=== PATIENT | male | born 1945 | race Caucasian/White ===

== ENCOUNTER 2018-04-22 12:34 | Observation (INO) | payer MEDICARE, BC ==
[2018-04-22] MEDS ORDERED: Sodium Chloride 0.9% 10 ML Syringe FLUSH PRN ×2 (12:58)
--- NOTE | 2018-04-22 13:04 | EDM.PDOC ---
ED HPI GENERAL MEDICAL PROBLEM - General Chief Complaint: Neurological Problem Stated Complaint: CAME WITH EMS Time Seen by Provider: 04/22/18 12:52 Source of Information: Reports: Patient, EMS, RN Notes Reviewed History Limitations: Reports: Altered Mental Status - History of Present Illness INITIAL COMMENTS - FREE TEXT/NARRATIVE: 72-year-old gentleman presents to the emergency department today via EMS services for altered mental status, he has a known history of hepatic encephalopathy does use lactulose unfortunately did not take his medications last night was found this morning in a confused state will answer single word questions will intermittently follow commands eyes open to voice. Majority of this H&P is taken from chart review and from EMS report - Related Data Allergies Allergy/AdvReac Type Severity Reaction Status Date / Time No Known Allergies Allergy Verified 04/22/18 14:49 Home Meds: Home Meds Amylase/Lipase/Protease [Kelsy DR 24,000 Unit] 3 cap PO TID 04/22/18 [History] Aspirin 1 tab PO DAILY 04/22/18 [History] Digoxin 1 tab PO DAILY 04/22/18 [History] Escitalopram Oxalate 5 mg PO DAILY 04/22/18 [History] Furosemide 1.5 tab PO DAILY 04/22/18 [History] Lactulose [Chronulac] 30 ml PO DAILY 04/22/18 [History] Nadolol [Naldol] 1 tab PO BID 04/22/18 [History] Pantoprazole [ProTONIX] 1 tab PO DAILY 04/22/18 [History] Potassium Chloride 1 tab PO TID 04/22/18 [History] Rivastigmine Tartrate [Rivastigmine] 1 tab PO BID 04/22/18 [History] Spironolactone [Aldactone] 1 tab PO BEDTIME 04/22/18 [History] Tamsulosin HCl 1 tab PO BEDTIME 04/22/18 [History] Zinc Sulfate 1 tab PO BID 04/22/18 [History] atorvaSTATin [Lipitor] 1 tab PO DAILY 04/22/18 [History] Past Medical History Gastrointestinal History: Reports: Cirrhosis, Other (See Below) (Hepatic encephalopathy) ED ROS GENERAL - Review of Systems Review Of Systems: Unable To Obtain ED EXAM, NEURO - Physical Exam Exam: See Below Exam Limited By: Altered Mental Status General Appearance: Lethargic, Other (GCS of 12) Eye Exam: Bilateral Eye: Normal Inspection Ears: Normal External Exam, Normal Canal, Hearing Grossly Normal, Normal TMs Nose: Normal Inspection, Normal Mucosa, No Blood Throat/Mouth: Other (Patient refused, deferred) Head Exam: Atraumatic, Normocephalic Neck: Normal Inspection, Supple, Non-Tender, Full Range of Motion Respiratory/Chest: No Respiratory Distress, Lungs Clear, Normal Breath Sounds, No Accessory Muscle Use Cardiovascular: Normal Peripheral Pulses, Regular Rate, Rhythm, Systolic Murmur GI/Abdominal: Soft, Non-Tender Neurological: Other (GCS of 12) Extremities: Non-Tender, Pedal Edema Skin Exam: Warm, Dry Course - Vital Signs Last Recorded V/S: Last Vital Signs Temp 98.7 F 04/22/18 13:23 Pulse 62 04/22/18 14:03 Resp 15 04/22/18 14:03 BP 129/74 04/22/18 14:03 Pulse Ox 98 04/22/18 14:03 - Orders/Labs/Meds Orders: Active Orders 24 hr Category Date Time Status Patient Status Manage Transfer [TRANSFER] Routine ADT 04/22/18 15:29 Active EKG Documentation Completion [RC] ASDIRECTED Care 04/22/18 12:59 Active Peripheral IV Care [RC] . DIRECTED Care 04/22/18 12:59 Active UA W/MICROSCOPIC [URIN] Stat Lab 04/22/18 14:02 Ordered Lactated Ringers [Ringers, Lactated] 1,000 ml Med 04/22/18 14:56 Active IV BOLUS Sodium Chloride 0.9% [Saline Flush] Med 04/22/18 12:58 Active 10 ml FLUSH ASDIRECTED PRN Sodium Chloride 0.9% [Saline Flush] Med 04/22/18 12:58 Active 10 ml FLUSH ASDIRECTED PRN Peripheral IV Insertion Adult [OM.PC] Urgent Oth 04/22/18 12:58 Ordered Resuscitation Status Routine Resus Stat 04/22/18 15:31 Ordered EKG 12 Lead [EK] Urgent Ther 04/22/18 12:58 Ordered Medication Orders Lactated Ringer's (Ringers, Lactated) 1,000 mls @ 999 mls/hr IV BOLUS ONE Stop: 04/22/18 15:56 Sodium Chloride (Saline Flush) 10 ml FLUSH ASDIRECTED PRN PRN Reason: Keep Vein Open Sodium Chloride (Saline Flush) 10 ml FLUSH ASDIRECTED PRN PRN Reason: Keep Vein Open Labs: Laboratory Tests 04/22/18 04/22/18 04/22/18 Range/Units 13:24 13:24 13:24 WBC 3.8 L (4.5-11.0) K/uL RBC 3.64 L (4.30-5.90) M/uL Hgb 11.6 L (12.0-15.0) g/dL Hct 33.6 L (40.0-54.0) % MCV 92 (80-98) fL MCH 32 H (27-31) pg MCHC 35 (32-36) % Plt Count 51 L (150-400) K/uL Neut % (Auto) 48 (36-66) % Lymph % (Auto) 36 (24-44) % Mineral % (Auto) 13 H (2-6) % Eos % (Auto) 3 (2-4) % Baso % (Auto) 0 (0-1) % PT 14.3 H (9.5-12.0) sec INR 1.32 H (0.80-1.20) APTT 34.1 (27.0-36.0) sec Sodium 141 (140-148) mmol/L Potassium 3.8 (3.6-5.2) mmol/L Chloride 109 H (100-108) mmol/L Carbon Dioxide 23 (21-32) mmol/L Anion Gap 12.8 (5.0-14.0) mmol/L BUN 13 (7-18) mg/dL Creatinine 0.9 (0.8-1.3) mg/dL Est Cr Clr Drug Dosing 81.34 mL/min Estimated GFR (MDRD) > 60 (>60) Glucose 115 H (74-106) mg/dL Lactic Acid (0.4-2.0) mmol/L Calcium 8.1 L (8.5-10.1) mg/dL Total Bilirubin 2.2 H (0.2-1.0) mg/dL AST 48 H (15-37) U/L ALT 40 (12-78) U/L Alkaline Phosphatase 181 H (46-116) U/L Ammonia (11-32) mmol/L Troponin I < 0.017 (0.000-0.056) ng/mL Total Protein 5.7 L (6.4-8.2) g/dL Albumin 2.5 L (3.4-5.0) g/dL Globulin 3.2 (2.3-3.5) g/dL Albumin/Globulin Ratio 0.8 L (1.2-2.2) Urine Color Urine Appearance Urine pH (4.5-8.0) Ur Specific [place] (1.008-1.030) Urine Protein (NEGATIVE) mg/dL Urine Glucose (UA) (NEGATIVE) mg/dL Urine Ketones (NEGATIVE) mg/dL Urine Occult Blood (NEGATIVE) Urine Nitrite (NEGAITVE) Urine Bilirubin (NEGATIVE) Urine Urobilinogen (NORMAL) mg/dL Ur Leukocyte Esterase (NEGATIVE) Urine RBC (0-5) Urine WBC (0-5) Ur Epithelial Cells Amorphous Sediment Urine Bacteria Urine Mucus Digoxin (0.90-2.00) ng/mL Salicylates (2.0-20.0) mg/dL Urine Opiates Screen (NEGATIVE) Ur Oxycodone Screen (NEGATIVE) Urine Methadone Screen (NEGATIVE) Ur Propoxyphene Screen (NEGATIVE) Acetaminophen 0.1 L (10.0-30.0) ug/mL Ur Barbiturates Screen (NEGATIVE) Ur Tricyclics Screen (NEGATIVE) Ur Phencyclidine Scrn (NEGATIVE) Ur Amphetamine Screen (NEGATIVE) U Methamphetamines Scrn (NEGATIVE) Urine MDMA Screen (NEGATIVE) U Benzodiazepines Scrn (NEGATIVE) U Cocaine Metab Screen (NEGATIVE) U Marijuana (THC) Screen (NEGATIVE) Ethyl Alcohol mg/dL 04/22/18 04/22/18 04/22/18 Range/Units 13:24 13:24 13:24 WBC (4.5-11.0) K/uL RBC (4.30-5.90) M/uL Hgb (12.0-15.0) g/dL Hct (40.0-54.0) % MCV (80-98) fL MCH (27-31) pg MCHC (32-36) % Plt Count (150-400) K/uL Neut % (Auto) (36-66) % Lymph % (Auto) (24-44) % Mineral % (Auto) (2-6) % Eos % (Auto) (2-4) % Baso % (Auto) (0-1) % PT (9.5-12.0) sec INR (0.80-1.20) APTT (27.0-36.0) sec Sodium (140-148) mmol/L Potassium (3.6-5.2) mmol/L Chloride (100-108) mmol/L Carbon Dioxide (21-32) mmol/L Anion Gap (5.0-14.0) mmol/L BUN (7-18) mg/dL Creatinine (0.8-1.3) mg/dL Est Cr Clr Drug Dosing mL/min Estimated GFR (MDRD) (>60) Glucose (74-106) mg/dL Lactic Acid 1.5 (0.4-2.0) mmol/L Calcium (8.5-10.1) mg/dL Total Bilirubin (0.2-1.0) mg/dL AST (15-37) U/L ALT (12-78) U/L Alkaline Phosphatase (46-116) U/L Ammonia 57 H (11-32) mmol/L Troponin I (0.000-0.056) ng/mL Total Protein (6.4-8.2) g/dL Albumin (3.4-5.0) g/dL Globulin (2.3-3.5) g/dL Albumin/Globulin Ratio (1.2-2.2) Urine Color Urine Appearance Urine pH (4.5-8.0) Ur Specific [place] (1.008-1.030) Urine Protein (NEGATIVE) mg/dL Urine Glucose (UA) (NEGATIVE) mg/dL Urine Ketones (NEGATIVE) mg/dL Urine Occult Blood (NEGATIVE) Urine Nitrite (NEGAITVE) Urine Bilirubin (NEGATIVE) Urine Urobilinogen (NORMAL) mg/dL Ur Leukocyte Esterase (NEGATIVE) Urine RBC (0-5) Urine WBC (0-5) Ur Epithelial Cells Amorphous Sediment Urine Bacteria Urine Mucus Digoxin (0.90-2.00) ng/mL Salicylates 0.0 L (2.0-20.0) mg/dL Urine Opiates Screen (NEGATIVE) Ur Oxycodone Screen (NEGATIVE) Urine Methadone Screen (NEGATIVE) Ur Propoxyphene Screen (NEGATIVE) Acetaminophen (10.0-30.0) ug/mL Ur Barbiturates Screen (NEGATIVE) Ur Tricyclics Screen (NEGATIVE) Ur Phencyclidine Scrn (NEGATIVE) Ur Amphetamine Screen (NEGATIVE) U Methamphetamines Scrn (NEGATIVE) Urine MDMA Screen (NEGATIVE) U Benzodiazepines Scrn (NEGATIVE) U Cocaine Metab Screen (NEGATIVE) U Marijuana (THC) Screen (NEGATIVE) Ethyl Alcohol mg/dL 04/22/18 04/22/18 04/22/18 Range/Units 13:24 14:02 14:23 WBC (4.5-11.0) K/uL RBC (4.30-5.90) M/uL Hgb (12.0-15.0) g/dL Hct (40.0-54.0) % MCV (80-98) fL MCH (27-31) pg MCHC (32-36) % Plt Count (150-400) K/uL Neut % (Auto) (36-66) % Lymph % (Auto) (24-44) % Mineral % (Auto) (2-6) % Eos % (Auto) (2-4) % Baso % (Auto) (0-1) % PT (9.5-12.0) sec INR (0.80-1.20) APTT (27.0-36.0) sec Sodium (140-148) mmol/L Potassium (3.6-5.2) mmol/L Chloride (100-108) mmol/L Carbon Dioxide (21-32) mmol/L Anion Gap (5.0-14.0) mmol/L BUN (7-18) mg/dL Creatinine (0.8-1.3) mg/dL Est Cr Clr Drug Dosing mL/min Estimated GFR (MDRD) (>60) Glucose (74-106) mg/dL Lactic Acid (0.4-2.0) mmol/L Calcium (8.5-10.1) mg/dL Total Bilirubin (0.2-1.0) mg/dL AST (15-37) U/L ALT (12-78) U/L Alkaline Phosphatase (46-116) U/L Ammonia (11-32) mmol/L Troponin I (0.000-0.056) ng/mL Total Protein (6.4-8.2) g/dL Albumin (3.4-5.0) g/dL Globulin (2.3-3.5) g/dL Albumin/Globulin Ratio (1.2-2.2) Urine Color Yellow Urine Appearance Clear Urine pH 7.0 (4.5-8.0) Ur Specific [place] 1.010 (1.008-1.030) Urine Protein Negative (NEGATIVE) mg/dL Urine Glucose (UA) Normal (NEGATIVE) mg/dL Urine Ketones Negative (NEGATIVE) mg/dL Urine Occult Blood Large (NEGATIVE) Urine Nitrite Negative (NEGAITVE) Urine Bilirubin Negative (NEGATIVE) Urine Urobilinogen 1 (NORMAL) mg/dL Ur Leukocyte Esterase Negative (NEGATIVE) Urine RBC 5-10 H (0-5) Urine WBC 0-5 (0-5) Ur Epithelial Cells Few Amorphous Sediment Not seen Urine Bacteria Rare Urine Mucus Rare Digoxin (0.90-2.00) ng/mL Salicylates (2.0-20.0) mg/dL Urine Opiates Screen Negative (NEGATIVE) Ur Oxycodone Screen Negative (NEGATIVE) Urine Methadone Screen Negative (NEGATIVE) Ur Propoxyphene Screen Negative (NEGATIVE) Acetaminophen (10.0-30.0) ug/mL Ur Barbiturates Screen Negative (NEGATIVE) Ur Tricyclics Screen Negative (NEGATIVE) Ur Phencyclidine Scrn Negative (NEGATIVE) Ur Amphetamine Screen Negative (NEGATIVE) U Methamphetamines Scrn Negative (NEGATIVE) Urine MDMA Screen Negative (NEGATIVE) U Benzodiazepines Scrn Negative (NEGATIVE) U Cocaine Metab Screen Negative (NEGATIVE) U Marijuana (THC) Screen Negative (NEGATIVE) Ethyl Alcohol < 3 mg/dL 04/22/18 Range/Units 14:57 WBC (4.5-11.0) K/uL RBC (4.30-5.90) M/uL Hgb (12.0-15.0) g/dL Hct (40.0-54.0) % MCV (80-98) fL MCH (27-31) pg MCHC (32-36) % Plt Count (150-400) K/uL Neut % (Auto) (36-66) % Lymph % (Auto) (24-44) % Mineral % (Auto) (2-6) % Eos % (Auto) (2-4) % Baso % (Auto) (0-1) % PT (9.5-12.0) sec INR (0.80-1.20) APTT (27.0-36.0) sec Sodium (140-148) mmol/L Potassium (3.6-5.2) mmol/L Chloride (100-108) mmol/L Carbon Dioxide (21-32) mmol/L Anion Gap (5.0-14.0) mmol/L BUN (7-18) mg/dL Creatinine (0.8-1.3) mg/dL Est Cr Clr Drug Dosing mL/min Estimated GFR (MDRD) (>60) Glucose (74-106) mg/dL Lactic Acid (0.4-2.0) mmol/L Calcium (8.5-10.1) mg/dL Total Bilirubin (0.2-1.0) mg/dL AST (15-37) U/L ALT (12-78) U/L Alkaline Phosphatase (46-116) U/L Ammonia (11-32) mmol/L Troponin I (0.000-0.056) ng/mL Total Protein (6.4-8.2) g/dL Albumin (3.4-5.0) g/dL Globulin (2.3-3.5) g/dL Albumin/Globulin Ratio (1.2-2.2) Urine Color Urine Appearance Urine pH (4.5-8.0) Ur Specific [place] (1.008-1.030) Urine Protein (NEGATIVE) mg/dL Urine Glucose (UA) (NEGATIVE) mg/dL Urine Ketones (NEGATIVE) mg/dL Urine Occult Blood (NEGATIVE) Urine Nitrite (NEGAITVE) Urine Bilirubin (NEGATIVE) Urine Urobilinogen (NORMAL) mg/dL Ur Leukocyte Esterase (NEGATIVE) Urine RBC (0-5) Urine WBC (0-5) Ur Epithelial Cells Amorphous Sediment Urine Bacteria Urine Mucus Digoxin 0.30 L (0.90-2.00) ng/mL Salicylates (2.0-20.0) mg/dL Urine Opiates Screen (NEGATIVE) Ur Oxycodone Screen (NEGATIVE) Urine Methadone Screen (NEGATIVE) Ur Propoxyphene Screen (NEGATIVE) Acetaminophen (10.0-30.0) ug/mL Ur Barbiturates Screen (NEGATIVE) Ur Tricyclics Screen (NEGATIVE) Ur Phencyclidine Scrn (NEGATIVE) Ur Amphetamine Screen (NEGATIVE) U Methamphetamines Scrn (NEGATIVE) Urine MDMA Screen (NEGATIVE) U Benzodiazepines Scrn (NEGATIVE) U Cocaine Metab Screen (NEGATIVE) U Marijuana (THC) Screen (NEGATIVE) Ethyl Alcohol mg/dL Meds: Medications Generic Name Dose Route Start Last Admin Trade Name Groverq PRN Reason Stop Dose Admin Lactated Ringer's 1,000 mls @ 999 mls/hr 04/22/18 14:56 Ringers, Lactated IV 04/22/18 15:56 BOLUS ONE Sodium Chloride 10 ml 04/22/18 12:58 Saline Flush FLUSH ASDIRECTED PRN Keep Vein Open Sodium Chloride 10 ml 04/22/18 12:58 Saline Flush FLUSH ASDIRECTED PRN Keep Vein Open Discontinued Medications Generic Name Dose Route Start Last Admin Trade Name Ej PRN Reason Stop Dose Admin Lactulose 200 gm/ Sodium 0 gm 04/22/18 15:00 Chloride 700 ml RECTAL 04/22/18 15:01 ONETIME ONE Lactulose 10 gm 04/22/18 14:08 04/22/18 14:25 Chronulac PO 04/22/18 14:09 10 gm ONETIME ONE Administration Departure - Departure Time of Disposition: 15:52 Disposition: Admitted As Inpatient 68 Condition: Fair Clinical Impression: Hepatic encephalopathy - Discharge Information Referrals: PCP,None [Primary Care Provider] - Forms: ED Department Discharge - My Orders Last 24 Hours: My Active Orders 04/22/18 12:58 Sodium Chloride 0.9% [Saline Flush] 10 ml FLUSH ASDIRECTED PRN Sodium Chloride 0.9% [Saline Flush] 10 ml FLUSH ASDIRECTED PRN Peripheral IV Insertion Adult [OM.PC] Urgent EKG 12 Lead [EK] Urgent 04/22/18 12:59 EKG Documentation Completion [RC] ASDIRECTED Peripheral IV Care [RC] . DIRECTED 04/22/18 14:02 UA W/MICROSCOPIC [URIN] Stat 04/22/18 14:56 Lactated Ringers [Ringers, Lactated] 1,000 ml IV BOLUS - Assessment/Plan Last 24 Hours: My Active Orders 04/22/18 12:58 Sodium Chloride 0.9% [Saline Flush] 10 ml FLUSH ASDIRECTED PRN Sodium Chloride 0.9% [Saline Flush] 10 ml FLUSH ASDIRECTED PRN Peripheral IV Insertion Adult [OM.PC] Urgent EKG 12 Lead [EK] Urgent 04/22/18 12:59 EKG Documentation Completion [RC] ASDIRECTED Peripheral IV Care [RC] . DIRECTED 04/22/18 14:02 UA W/MICROSCOPIC [URIN] Stat 04/22/18 14:56 Lactated Ringers [Ringers, Lactated] 1,000 ml IV BOLUS Plan: Assessment Acuity = acute Site and laterality = hepatic encephalopathy complicated patient with known history of liver cirrhosis Etiology = probably related to lactulose compliance Manifestations = altered mental status Location of injury = Home Lab values = cbc unremarkable, INR 1.32 on no anticoagulants, total bilirubin 2.2 consistent with hyperbilirubinemia ammonia level elevated at 57, digoxin subtherapeutic at 0.3, urinalysis unremarkable, CT scan of the head shows no acute process, tox screen was negative Plan Called discussed case with hospitalist manager oncology he agreed to come and evaluate the patient emergency department for admission This note was dictated using [employer] voice recognition software please call with any questions on syntax or grammar.
--- NOTE | 2018-04-22 13:38 | CT ---
Head wo Cont CLINICAL HISTORY: Unresponsive COMPARISON: None TECHNIQUE: Transverse scans were obtained from the base of the skull through the vertex without IV co ntrast on a multislice, multidetector CT scanner. Auto dosage reduction and iterative reconstruction techniques employed. FINDINGS: No focal abnormal parenchymal density is identified. There is no mass effect, hemorrhage, o r extraaxial collection. The basal cisterns and sulci over the convexities are mildly prominent. The ventricles are normal for age. IMPRESSION: Mild age-related atrophy No focal lesions mass effect or hemorrhage
[2018-04-22 13:51] LABS: ACETAMINOPHEN 0.1 ug/mL (10.0-30.0)
[2018-04-22] MEDS ORDERED: Lactulose Soln 10 GM/15 ML 15 ML UD Cup ONE (13:58)
[2018-04-22] MEDS ORDERED: Lactulose Soln 10 GM/15 ML 15 ML UD Cup PO ONE (14:08)
[2018-04-22] MEDS ORDERED: Lactated Ringers 1,000 ML IV ONE (14:56)
--- NOTE | 2018-04-22 15:41 | PCM.HP ---
H&P History of Present Illness - General Date of Service: 04/22/18 Admit Problem/Dx: Admission Diagnosis/Problem Admission Diagnosis/Problem Hepatic encephalopathy Source of Information: Patient, Family, Provider History Limitations: Reports: Altered Mental Status (some confusion and memory issues with HE) - History of Present Illness Initial Comments - Free Text/Narative: Elliot presents to the emergency room today with weakness, lethargy and confusion. Some of the history is gathered from his because of his recent difficulties with confusion and lethargy. His reports that he seemed a little bit off over the last day or 2 but in general was doing okay. Last night he seemed a little bit sleepier than usual but this morning was very difficult to get out of bed. He was confused and did not want to take his medications. He was very weak and required a fair amount of assistance to get around. She does note that he did not take his lactulose for approximately 10 days prior to yesterday when he did take a dose in the morning. They have not noticed any fevers. He does not feel short of breath. He is not having abdominal pain or nausea. He has not been around anybody sick. Workup in the emergency room revealed an ammonia level of 57. Bilirubin is mildly elevated and INR is mildly elevated consistent with chronic liver disease. He remains weak and confused and will be admitted for observation and additional doses of lactulose. - Related Data Allergies/Adverse Reactions: Allergies Allergy/AdvReac Type Severity Reaction Status Date / Time No Known Allergies Allergy Verified 04/22/18 14:49 Home Medications: Home Meds Amylase/Lipase/Protease [Kelsy GARCIA 24,000 Unit] 3 cap PO TID 04/22/18 [History] Aspirin 1 tab PO DAILY 04/22/18 [History] Digoxin 1 tab PO DAILY 04/22/18 [History] Escitalopram Oxalate 5 mg PO DAILY 04/22/18 [History] Furosemide 1.5 tab PO DAILY 04/22/18 [History] Lactulose [Chronulac] 30 ml PO DAILY 04/22/18 [History] Nadolol [Naldol] 1 tab PO BID 04/22/18 [History] Pantoprazole [ProTONIX] 1 tab PO DAILY 04/22/18 [History] Potassium Chloride 1 tab PO TID 04/22/18 [History] Rivastigmine Tartrate [Rivastigmine] 1 tab PO BID 04/22/18 [History] Spironolactone [Aldactone] 1 tab PO BEDTIME 04/22/18 [History] Tamsulosin HCl 1 tab PO BEDTIME 04/22/18 [History] Zinc Sulfate 1 tab PO BID 04/22/18 [History] atorvaSTATin [Lipitor] 1 tab PO DAILY 04/22/18 [History] Past Medical History Cardiovascular History: Reports: Afib Gastrointestinal History: Reports: Cirrhosis, Other (See Below) (Hepatic encephalopathy) Social & Family History - Family History GI: Denies: Cirrhosis - Tobacco Use Smoking Status *Q: Unknown Ever Smoked - Alcohol Use Alcohol Use History: Yes Alcohol Use in Last Twelve Months: No - Recreational Drug Use Recreational Drug Use: No H&P Review of Systems - Review of Systems: Review Of Systems: See Below Free Text/Narrative: A complete 12 point review of systems was obtained. Pertinent positives and negatives are noted in the history of present illness. All other systems were reviewed and were negative except as noted. Exam - Exam Exam: See Below - Vital Signs Vital Signs: Last Vital Signs Temp 37.1 C 04/22/18 13:23 Pulse 62 04/22/18 14:03 Resp 15 04/22/18 14:03 BP 129/74 04/22/18 14:03 Pulse Ox 98 04/22/18 14:03 Weight: 83.915 kg - Exam Quality Assessment: No: Supplemental Oxygen General: Alert, Cooperative, Lethargic. No: Oriented, Mild Distress HEENT: Conjunctiva Clear, Scleral Icterus. No: Mucosa Moist & [place] (dry) Neck: Supple, Trachea Midline. No: Lymphadenopathy Lungs: Clear to Auscultation, Normal Respiratory Effort Cardiovascular: Regular Rate, Regular Rhythm, Systolic Murmur GI/Abdominal Exam: Normal Bowel Sounds, Soft, Non-Tender, No Distention Extremities: Pedal Edema. No: Increased Warmth Peripheral Pulses: 2+: Dorsalis Pedis (L), Dorsalis Pedis (R) Skin: Warm, Dry Neuro Extensive - Mental Status: Alert, Slow Response to Commands. No: Oriented x3 Neuro Extensive - Motor, Sensory, Reflexes: CN II-XII Intact. No: Dysarthria, Abnormal Motor, Tremor Psychiatric: Alert, Normal Affect - Patient Data Lab Results Last 24 hrs: Laboratory Results - last 24 hr 07/04/22/18 04/22/18 Range/Units 13:24 13:24 13:24 WBC 3.8 L (4.5-11.0) K/uL RBC 3.64 L (4.30-5.90) M/uL Hgb 11.6 L (12.0-15.0) g/dL Hct 33.6 L (40.0-54.0) % MCV 92 (80-98) fL MCH 32 H (27-31) pg MCHC 35 (32-36) % Plt Count 51 L (150-400) K/uL Neut % (Auto) 48 (36-66) % Lymph % (Auto) 36 (24-44) % [place] % (Auto) 13 H (2-6) % Eos % (Auto) 3 (2-4) % Baso % (Auto) 0 (0-1) % PT 14.3 H (9.5-12.0) sec INR 1.32 H (0.80-1.20) APTT 34.1 (27.0-36.0) sec Sodium 141 (140-148) mmol/L Potassium 3.8 (3.6-5.2) mmol/L Chloride 109 H (100-108) mmol/L Carbon Dioxide 23 (21-32) mmol/L Anion Gap 12.8 (5.0-14.0) mmol/L BUN 13 (7-18) mg/dL Creatinine 0.9 (0.8-1.3) mg/dL Est Cr Clr Drug Dosing 81.34 mL/min Estimated GFR (MDRD) > 60 (>60) Glucose 115 H (74-106) mg/dL Lactic Acid (0.4-2.0) mmol/L Calcium 8.1 L (8.5-10.1) mg/dL Total Bilirubin 2.2 H (0.2-1.0) mg/dL AST 48 H (15-37) U/L ALT 40 (12-78) U/L Alkaline Phosphatase 181 H (46-116) U/L Ammonia (11-32) mmol/L Troponin I < 0.017 (0.000-0.056) ng/mL Total Protein 5.7 L (6.4-8.2) g/dL Albumin 2.5 L (3.4-5.0) g/dL Globulin 3.2 (2.3-3.5) g/dL Albumin/Globulin Ratio 0.8 L (1.2-2.2) Urine Color Urine Appearance Urine pH (4.5-8.0) Ur Specific [place] (1.008-1.030) Urine Protein (NEGATIVE) mg/dL Urine Glucose (UA) (NEGATIVE) mg/dL Urine Ketones (NEGATIVE) mg/dL Urine Occult Blood (NEGATIVE) Urine Nitrite (NEGAITVE) Urine Bilirubin (NEGATIVE) Urine Urobilinogen (NORMAL) mg/dL Ur Leukocyte Esterase (NEGATIVE) Urine RBC (0-5) Urine WBC (0-5) Ur Epithelial Cells Amorphous Sediment Urine Bacteria Urine Mucus Digoxin (0.90-2.00) ng/mL Salicylates (2.0-20.0) mg/dL Urine Opiates Screen (NEGATIVE) Ur Oxycodone Screen (NEGATIVE) Urine Methadone Screen (NEGATIVE) Ur Propoxyphene Screen (NEGATIVE) Acetaminophen 0.1 L (10.0-30.0) ug/mL Ur Barbiturates Screen (NEGATIVE) Ur Tricyclics Screen (NEGATIVE) Ur Phencyclidine Scrn (NEGATIVE) Ur Amphetamine Screen (NEGATIVE) U Methamphetamines Scrn (NEGATIVE) Urine MDMA Screen (NEGATIVE) U Benzodiazepines Scrn (NEGATIVE) U Cocaine Metab Screen (NEGATIVE) U Marijuana (THC) Screen (NEGATIVE) Ethyl Alcohol mg/dL 04/22/18 04/22/18 04/22/18 Range/Units 13:24 13:24 13:24 WBC (4.5-11.0) K/uL RBC (4.30-5.90) M/uL Hgb (12.0-15.0) g/dL Hct (40.0-54.0) % MCV (80-98) fL MCH (27-31) pg MCHC (32-36) % Plt Count (150-400) K/uL Neut % (Auto) (36-66) % Lymph % (Auto) (24-44) % [place] % (Auto) (2-6) % Eos % (Auto) (2-4) % Baso % (Auto) (0-1) % PT (9.5-12.0) sec INR (0.80-1.20) APTT (27.0-36.0) sec Sodium (140-148) mmol/L Potassium (3.6-5.2) mmol/L Chloride (100-108) mmol/L Carbon Dioxide (21-32) mmol/L Anion Gap (5.0-14.0) mmol/L BUN (7-18) mg/dL Creatinine (0.8-1.3) mg/dL Est Cr Clr Drug Dosing mL/min Estimated GFR (MDRD) (>60) Glucose (74-106) mg/dL Lactic Acid 1.5 (0.4-2.0) mmol/L Calcium (8.5-10.1) mg/dL Total Bilirubin (0.2-1.0) mg/dL AST (15-37) U/L ALT (12-78) U/L Alkaline Phosphatase (46-116) U/L Ammonia 57 H (11-32) mmol/L Troponin I (0.000-0.056) ng/mL Total Protein (6.4-8.2) g/dL Albumin (3.4-5.0) g/dL Globulin (2.3-3.5) g/dL Albumin/Globulin Ratio (1.2-2.2) Urine Color Urine Appearance Urine pH (4.5-8.0) Ur Specific [place] (1.008-1.030) Urine Protein (NEGATIVE) mg/dL Urine Glucose (UA) (NEGATIVE) mg/dL Urine Ketones (NEGATIVE) mg/dL Urine Occult Blood (NEGATIVE) Urine Nitrite (NEGAITVE) Urine Bilirubin (NEGATIVE) Urine Urobilinogen (NORMAL) mg/dL Ur Leukocyte Esterase (NEGATIVE) Urine RBC (0-5) Urine WBC (0-5) Ur Epithelial Cells Amorphous Sediment Urine Bacteria Urine Mucus Digoxin (0.90-2.00) ng/mL Salicylates 0.0 L (2.0-20.0) mg/dL Urine Opiates Screen (NEGATIVE) Ur Oxycodone Screen (NEGATIVE) Urine Methadone Screen (NEGATIVE) Ur Propoxyphene Screen (NEGATIVE) Acetaminophen (10.0-30.0) ug/mL Ur Barbiturates Screen (NEGATIVE) Ur Tricyclics Screen (NEGATIVE) Ur Phencyclidine Scrn (NEGATIVE) Ur Amphetamine Screen (NEGATIVE) U Methamphetamines Scrn (NEGATIVE) Urine MDMA Screen (NEGATIVE) U Benzodiazepines Scrn (NEGATIVE) U Cocaine Metab Screen (NEGATIVE) U Marijuana (THC) Screen (NEGATIVE) Ethyl Alcohol mg/dL 04/22/18 04/22/18 04/22/18 Range/Units 13:24 14:02 14:23 WBC (4.5-11.0) K/uL RBC (4.30-5.90) M/uL Hgb (12.0-15.0) g/dL Hct (40.0-54.0) % MCV (80-98) fL MCH (27-31) pg MCHC (32-36) % Plt Count (150-400) K/uL Neut % (Auto) (36-66) % Lymph % (Auto) (24-44) % [place] % (Auto) (2-6) % Eos % (Auto) (2-4) % Baso % (Auto) (0-1) % PT (9.5-12.0) sec INR (0.80-1.20) APTT (27.0-36.0) sec Sodium (140-148) mmol/L Potassium (3.6-5.2) mmol/L Chloride (100-108) mmol/L Carbon Dioxide (21-32) mmol/L Anion Gap (5.0-14.0) mmol/L BUN (7-18) mg/dL Creatinine (0.8-1.3) mg/dL Est Cr Clr Drug Dosing mL/min Estimated GFR (MDRD) (>60) Glucose (74-106) mg/dL Lactic Acid (0.4-2.0) mmol/L Calcium (8.5-10.1) mg/dL Total Bilirubin (0.2-1.0) mg/dL AST (15-37) U/L ALT (12-78) U/L Alkaline Phosphatase (46-116) U/L Ammonia (11-32) mmol/L Troponin I (0.000-0.056) ng/mL Total Protein (6.4-8.2) g/dL Albumin (3.4-5.0) g/dL Globulin (2.3-3.5) g/dL Albumin/Globulin Ratio (1.2-2.2) Urine Color Yellow Urine Appearance Clear Urine pH 7.0 (4.5-8.0) Ur Specific [place] 1.010 (1.008-1.030) Urine Protein Negative (NEGATIVE) mg/dL Urine Glucose (UA) Normal (NEGATIVE) mg/dL Urine Ketones Negative (NEGATIVE) mg/dL Urine Occult Blood Large (NEGATIVE) Urine Nitrite Negative (NEGAITVE) Urine Bilirubin Negative (NEGATIVE) Urine Urobilinogen 1 (NORMAL) mg/dL Ur Leukocyte Esterase Negative (NEGATIVE) Urine RBC 5-10 H (0-5) Urine WBC 0-5 (0-5) Ur Epithelial Cells Few Amorphous Sediment Not seen Urine Bacteria Rare Urine Mucus Rare Digoxin (0.90-2.00) ng/mL Salicylates (2.0-20.0) mg/dL Urine Opiates Screen Negative (NEGATIVE) Ur Oxycodone Screen Negative (NEGATIVE) Urine Methadone Screen Negative (NEGATIVE) Ur Propoxyphene Screen Negative (NEGATIVE) Acetaminophen (10.0-30.0) ug/mL Ur Barbiturates Screen Negative (NEGATIVE) Ur Tricyclics Screen Negative (NEGATIVE) Ur Phencyclidine Scrn Negative (NEGATIVE) Ur Amphetamine Screen Negative (NEGATIVE) U Methamphetamines Scrn Negative (NEGATIVE) Urine MDMA Screen Negative (NEGATIVE) U Benzodiazepines Scrn Negative (NEGATIVE) U Cocaine Metab Screen Negative (NEGATIVE) U Marijuana (THC) Screen Negative (NEGATIVE) Ethyl Alcohol < 3 mg/dL 04/22/18 Range/Units 14:57 WBC (4.5-11.0) K/uL RBC (4.30-5.90) M/uL Hgb (12.0-15.0) g/dL Hct (40.0-54.0) % MCV (80-98) fL MCH (27-31) pg MCHC (32-36) % Plt Count (150-400) K/uL Neut % (Auto) (36-66) % Lymph % (Auto) (24-44) % [place] % (Auto) (2-6) % Eos % (Auto) (2-4) % Baso % (Auto) (0-1) % PT (9.5-12.0) sec INR (0.80-1.20) APTT (27.0-36.0) sec Sodium (140-148) mmol/L Potassium (3.6-5.2) mmol/L Chloride (100-108) mmol/L Carbon Dioxide (21-32) mmol/L Anion Gap (5.0-14.0) mmol/L BUN (7-18) mg/dL Creatinine (0.8-1.3) mg/dL Est Cr Clr Drug Dosing mL/min Estimated GFR (MDRD) (>60) Glucose (74-106) mg/dL Lactic Acid (0.4-2.0) mmol/L Calcium (8.5-10.1) mg/dL Total Bilirubin (0.2-1.0) mg/dL AST (15-37) U/L ALT (12-78) U/L Alkaline Phosphatase (46-116) U/L Ammonia (11-32) mmol/L Troponin I (0.000-0.056) ng/mL Total Protein (6.4-8.2) g/dL Albumin (3.4-5.0) g/dL Globulin (2.3-3.5) g/dL Albumin/Globulin Ratio (1.2-2.2) Urine Color Urine Appearance Urine pH (4.5-8.0) Ur Specific [place] (1.008-1.030) Urine Protein (NEGATIVE) mg/dL Urine Glucose (UA) (NEGATIVE) mg/dL Urine Ketones (NEGATIVE) mg/dL Urine Occult Blood (NEGATIVE) Urine Nitrite (NEGAITVE) Urine Bilirubin (NEGATIVE) Urine Urobilinogen (NORMAL) mg/dL Ur Leukocyte Esterase (NEGATIVE) Urine RBC (0-5) Urine WBC (0-5) Ur Epithelial Cells Amorphous Sediment Urine Bacteria Urine Mucus Digoxin 0.30 L (0.90-2.00) ng/mL Salicylates (2.0-20.0) mg/dL Urine Opiates Screen (NEGATIVE) Ur Oxycodone Screen (NEGATIVE) Urine Methadone Screen (NEGATIVE) Ur Propoxyphene Screen (NEGATIVE) Acetaminophen (10.0-30.0) ug/mL Ur Barbiturates Screen (NEGATIVE) Ur Tricyclics Screen (NEGATIVE) Ur Phencyclidine Scrn (NEGATIVE) Ur Amphetamine Screen (NEGATIVE) U Methamphetamines Scrn (NEGATIVE) Urine MDMA Screen (NEGATIVE) U Benzodiazepines Scrn (NEGATIVE) U Cocaine Metab Screen (NEGATIVE) U Marijuana (THC) Screen (NEGATIVE) Ethyl Alcohol mg/dL Result Diagrams: 04/22/18 13:24 04/22/18 13:24 Imaging Impressions Last 24 hrs: CT head - images personally reviewed - there are no acute findings such as mass , bleed or stroke. Mild chronic age related atrophy noted. EKG INTERPRETATION EKG Date: 04/22/18 Rhythm: NSR Rate (Beats/Min): 62 [place]: Normal P-Wave: Present QRS: Normal ST-T: Normal QT: Normal EKG Interpretation Comments: there are some mild non-specific t wave inversions inferiorly and anterolaterally *Q Meaningful Use (ADM) - VTE Risk Assess *Q Each Risk Factor Represents 1 Point: Swollen Legs, Current, Obesity ( BMI > 25 kg/m2) Total Score 1 Point Risk Factors: 2 Each Risk Factor Represents 2 Points: Age 60 - 74 Years Total Score 2 Point Risk Factors: 2 Each Risk Factor Represents 3 Points: None Total Score 3 Point Risk Factors: 0 Each Risk Factor Represents 5 Points: None Total Score 5 Point Risk Factors: 0 Venous Thromboembolism Risk Factor Score *Q: 4 - Problem List (1) Cirrhosis of liver SNOMED Code(s): 82740788 ICD Code: K74.60 - UNSPECIFIED CIRRHOSIS OF LIVER Status: Acute Current Visit: Yes Qualifiers: Hepatic cirrhosis type: unspecified hepatic cirrhosis Ascites presence: unspecified Qualified Code(s): K74.60 - Unspecified cirrhosis of liver (2) Hepatic encephalopathy SNOMED Code(s): 61057802 ICD Code: K72.90 - HEPATIC FAILURE, UNSPECIFIED WITHOUT COMA Status: Acute Current Visit: Yes Problem List Initiated/Reviewed/Updated: Yes Orders Last 24hrs: Active Orders 24 hr Category Date Time Status Patient Status Manage Transfer [TRANSFER] Routine ADT 04/22/18 15:29 Active EKG Documentation Completion [RC] ASDIRECTED Care 04/22/18 12:59 Active Peripheral IV Care [RC] . DIRECTED Care 04/22/18 12:59 Active UA W/MICROSCOPIC [URIN] Stat Lab 04/22/18 14:02 Ordered Lactated Ringers [Ringers, Lactated] 1,000 ml Med 04/22/18 14:56 Active IV BOLUS Sodium Chloride 0.9% [Saline Flush] Med 04/22/18 12:58 Active 10 ml FLUSH ASDIRECTED PRN Sodium Chloride 0.9% [Saline Flush] Med 04/22/18 12:58 Active 10 ml FLUSH ASDIRECTED PRN Peripheral IV Insertion Adult [OM.PC] Urgent Oth 04/22/18 12:58 Ordered Resuscitation Status Routine Resus Stat 04/22/18 15:31 Ordered EKG 12 Lead [EK] Urgent Ther 04/22/18 12:58 Ordered Medication Orders Lactated Ringer's (Ringers, Lactated) 1,000 mls @ 999 mls/hr IV BOLUS ONE Stop: 04/22/18 15:56 Sodium Chloride (Saline Flush) 10 ml FLUSH ASDIRECTED PRN PRN Reason: Keep Vein Open Sodium Chloride (Saline Flush) 10 ml FLUSH ASDIRECTED PRN PRN Reason: Keep Vein Open Assessment/Plan Comment:: ASSESSMENT AND PLAN - Hepatic encephalopathy - ammonia level is elevated and this is the likely explanation for his weakness, lethargy and confusion. There is no evidence for infection at this time. 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 -Reassess this evening, consider a second dose of lactulose -Lactulose in the morning per usual schedule -Repeat ammonia level in the morning Chronic liver disease - complicated by excess volume as well as elevated INR and hepatic encephalopathy as above. There does not appear to be evidence for decompensation at this time. -Continue beta sunil and diuretics Maintenance issues - - DVT prophylaxis - mechanical - GI prophylaxis - not indicated - Nutrition - low sodium - Slater catheter - not indicated CODE STATUS - full code Admission justification - patient will be referred observation status for close monitoring, additional lactulose dosing and repeat ammonia testing Disposition - anticipate discharge to home tomorrow Primary care physician - patient is a resident of the [facility] and his primary care is received there Broderick Rees M.D.
[2018-04-22] MEDS ORDERED: Acetaminophen 325 MG Tab PO PRN (16:20)
[2018-04-22] MEDS ORDERED: Ondansetron 4 MG Tab.DIS PO PRN (16:20)
[2018-04-22] MEDS: RIVASTIGMINE TARTRATE 4.5 MG PO SCH (17:18)
[2018-04-22] MEDS: Potassium Chloride 20 MEQ Tab.ER PO SCH (17:19)
[2018-04-22] MEDS ORDERED: Tamsulosin 0.4 MG Cap.ER*POM PO SCH (21:00)
[2018-04-22] MEDS ORDERED: SPIRONOLACTONE 25 MG PO SCH (21:00)
[2018-04-22] MEDS: NADOLOL 20 MG PO SCH (21:29)
[2018-04-23] MEDS ORDERED: Pantoprazole 40 MG Tab.CR*POM PO SCH (07:30)
[2018-04-23] MEDS: Potassium Chloride 20 MEQ Tab.ER PO SCH (08:08)
[2018-04-23] MEDS: RIVASTIGMINE TARTRATE 4.5 MG PO SCH (08:08)
[2018-04-23] MEDS: NADOLOL 20 MG PO SCH (08:12)
[2018-04-23] MEDS ORDERED: Aspirin 81 MG Tab.EC PO SCH (09:00)
[2018-04-23] MEDS ORDERED: Furosemide 20 MG Tab PO SCH (09:00)
[2018-04-23] MEDS ORDERED: Lactulose Soln 10 GM/15 ML 15 ML UD Cup PO SCH (09:00)
[2018-04-23] MEDS ORDERED: ATORVASTATIN 10 MG PO SCH (09:00)
--- NOTE | 2018-04-23 10:15 | PCM.DCSUM1 ---
Discharge Summary - Hospital Course Brief History: 72-year-old male with history of cirrhosis who presented with weakness and confusion. 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 Diagnosis: Stroke: No - Discharge Data Discharge Date: 04/23/18 Discharge Disposition: Home, Self-Care 01 Condition: Good - Discharge Diagnosis/Problem(s) (1) Hepatic encephalopathy SNOMED Code(s): 82392781 ICD Code: K72.90 - HEPATIC FAILURE, UNSPECIFIED WITHOUT COMA Status: Acute Current Visit: Yes (2) Cirrhosis of liver SNOMED Code(s): 95933317 ICD Code: K74.60 - UNSPECIFIED CIRRHOSIS OF LIVER Status: Acute Current Visit: Yes Qualifiers: Hepatic cirrhosis type: unspecified hepatic cirrhosis Ascites presence: unspecified Qualified Code(s): K74.60 - Unspecified cirrhosis of liver - Patient Summary/Data Hospital Course: Elliot presented to the emergency room with weakness and confusion. He had not been taking his lactulose regularly and workup in the emergency room revealed an elevated ammonia level. He received a dose of lactulose in the emergency room and was admitted for observation to ensure that he continued to improve. Overnight he did have improvements in his mental status and strength. There were no acute issues. There were no fevers. The morning after admission he is feeling much better and nearly back to baseline. His ammonia level is even slightly higher today than at the time of presentation. Given his significant clinical improvement I do believe he is safe for outpatient management. I did encourage him strongly to continue to use his lactulose every day. We reviewed the importance of using the medication to help avoid future difficulties with elevated ammonia levels. He voiced understanding. He will be discharged home with his . - Patient Instructions Diet: Usual Diet as Tolerated Activity: As Tolerated Showering/Bathing: May Shower Notify Provider of: Fever, Increased Pain, Nausea and/or Vomiting Other/Special Instructions: 1. You more in the hospital for management of hepatic encephalopathy caused by an elevated ammonia level. Your condition has been improving following administration of lactulose. It is very important that you take this medication every morning to help prevent the ammonia level from building up in your body. 2. Continue your other medications as previously prescribed. 3. Seek medical attention if you develop fever greater than 101, you have weakness that interferes with your activities of daily living or if you have confusion. - Discharge Plan *PRESCRIPTION DRUG MONITORING PROGRAM REVIEWED*: Not Applicable *COPY OF PRESCRIPTION DRUG MONITORING REPORT IN PATIENT JOSHUA: Not Applicable Home Medications: Home Meds Amylase/Lipase/Protease [Kelsy GARCIA 24,000 Unit] 3 cap PO TID 04/22/18 [History] Aspirin 1 tab PO DAILY 04/22/18 [History] Digoxin 1 tab PO DAILY 04/22/18 [History] Escitalopram Oxalate 5 mg PO DAILY 04/22/18 [History] Furosemide 1.5 tab PO DAILY 04/22/18 [History] Lactulose [Chronulac] 30 ml PO DAILY 04/22/18 [History] Nadolol [Naldol] 1 tab PO BID 04/22/18 [History] Pantoprazole [ProTONIX] 1 tab PO DAILY 04/22/18 [History] Potassium Chloride 1 tab PO TID 04/22/18 [History] Rivastigmine Tartrate [Rivastigmine] 1 tab PO BID 04/22/18 [History] Spironolactone [Aldactone] 1 tab PO BEDTIME 04/22/18 [History] Tamsulosin HCl 1 tab PO BEDTIME 04/22/18 [History] Zinc Sulfate 1 tab PO BID 04/22/18 [History] atorvaSTATin [Lipitor] 1 tab PO DAILY 04/22/18 [History] Patient Handouts: Hepatic Encephalopathy, Lactulose oral solution Referrals: PCP,None [Primary Care Provider] - (f/u with your primary care as needed after the hospital stay ) - Discharge Summary/Plan Comment DC Time >30 min.: No - Patient Data Vitals - Most Recent: Last Vital Signs Temp 36.2 C 04/23/18 07:27 Pulse 64 04/23/18 08:12 Resp 16 04/23/18 07:27 BP 124/69 04/23/18 08:12 Pulse Ox 98 04/23/18 07:27 Weight - Most Recent: 101.605 kg I&O - Last 24 hours: Intake & Output 04/22/18 04/23/18 04/23/18 22:59 06:59 14:59 Intake Total 1180 860 Balance 1180 860 Lab Results - Last 24 hrs: Laboratory Results - last 24 hr 04/22/18 04/22/18 04/22/18 Range/Units 13:24 13:24 13:24 WBC 3.8 L (4.5-11.0) K/uL RBC 3.64 L (4.30-5.90) M/uL Hgb 11.6 L (12.0-15.0) g/dL Hct 33.6 L (40.0-54.0) % MCV 92 (80-98) fL MCH 32 H (27-31) pg MCHC 35 (32-36) % Plt Count 51 L (150-400) K/uL Neut % (Auto) 48 (36-66) % Lymph % (Auto) 36 (24-44) % Spink % (Auto) 13 H (2-6) % Eos % (Auto) 3 (2-4) % Baso % (Auto) 0 (0-1) % PT 14.3 H (9.5-12.0) sec INR 1.32 H (0.80-1.20) APTT 34.1 (27.0-36.0) sec Sodium 141 (140-148) mmol/L Potassium 3.8 (3.6-5.2) mmol/L Chloride 109 H (100-108) mmol/L Carbon Dioxide 23 (21-32) mmol/L Anion Gap 12.8 (5.0-14.0) mmol/L BUN 13 (7-18) mg/dL Creatinine 0.9 (0.8-1.3) mg/dL Est Cr Clr Drug Dosing 81.34 mL/min Estimated GFR (MDRD) > 60 (>60) Glucose 115 H (74-106) mg/dL Lactic Acid (0.4-2.0) mmol/L Calcium 8.1 L (8.5-10.1) mg/dL Total Bilirubin 2.2 H (0.2-1.0) mg/dL AST 48 H (15-37) U/L ALT 40 (12-78) U/L Alkaline Phosphatase 181 H (46-116) U/L Ammonia (11-32) mmol/L Troponin I < 0.017 (0.000-0.056) ng/mL Total Protein 5.7 L (6.4-8.2) g/dL Albumin 2.5 L (3.4-5.0) g/dL Globulin 3.2 (2.3-3.5) g/dL Albumin/Globulin Ratio 0.8 L (1.2-2.2) Urine Color Urine Appearance Urine pH (4.5-8.0) Ur Specific Weston (1.008-1.030) Urine Protein (NEGATIVE) mg/dL Urine Glucose (UA) (NEGATIVE) mg/dL Urine Ketones (NEGATIVE) mg/dL Urine Occult Blood (NEGATIVE) Urine Nitrite (NEGAITVE) Urine Bilirubin (NEGATIVE) Urine Urobilinogen (NORMAL) mg/dL Ur Leukocyte Esterase (NEGATIVE) Urine RBC (0-5) Urine WBC (0-5) Ur Epithelial Cells Amorphous Sediment Urine Bacteria Urine Mucus Digoxin (0.90-2.00) ng/mL Salicylates (2.0-20.0) mg/dL Urine Opiates Screen (NEGATIVE) Ur Oxycodone Screen (NEGATIVE) Urine Methadone Screen (NEGATIVE) Ur Propoxyphene Screen (NEGATIVE) Acetaminophen 0.1 L (10.0-30.0) ug/mL Ur Barbiturates Screen (NEGATIVE) Ur Tricyclics Screen (NEGATIVE) Ur Phencyclidine Scrn (NEGATIVE) Ur Amphetamine Screen (NEGATIVE) U Methamphetamines Scrn (NEGATIVE) Urine MDMA Screen (NEGATIVE) U Benzodiazepines Scrn (NEGATIVE) U Cocaine Metab Screen (NEGATIVE) U Marijuana (THC) Screen (NEGATIVE) Ethyl Alcohol mg/dL 04/22/18 04/22/18 04/22/18 Range/Units 13:24 13:24 13:24 WBC (4.5-11.0) K/uL RBC (4.30-5.90) M/uL Hgb (12.0-15.0) g/dL Hct (40.0-54.0) % MCV (80-98) fL MCH (27-31) pg MCHC (32-36) % Plt Count (150-400) K/uL Neut % (Auto) (36-66) % Lymph % (Auto) (24-44) % Spink % (Auto) (2-6) % Eos % (Auto) (2-4) % Baso % (Auto) (0-1) % PT (9.5-12.0) sec INR (0.80-1.20) APTT (27.0-36.0) sec Sodium (140-148) mmol/L Potassium (3.6-5.2) mmol/L Chloride (100-108) mmol/L Carbon Dioxide (21-32) mmol/L Anion Gap (5.0-14.0) mmol/L BUN (7-18) mg/dL Creatinine (0.8-1.3) mg/dL Est Cr Clr Drug Dosing mL/min Estimated GFR (MDRD) (>60) Glucose (74-106) mg/dL Lactic Acid 1.5 (0.4-2.0) mmol/L Calcium (8.5-10.1) mg/dL Total Bilirubin (0.2-1.0) mg/dL AST (15-37) U/L ALT (12-78) U/L Alkaline Phosphatase (46-116) U/L Ammonia 57 H (11-32) mmol/L Troponin I (0.000-0.056) ng/mL Total Protein (6.4-8.2) g/dL Albumin (3.4-5.0) g/dL Globulin (2.3-3.5) g/dL Albumin/Globulin Ratio (1.2-2.2) Urine Color Urine Appearance Urine pH (4.5-8.0) Ur Specific Weston (1.008-1.030) Urine Protein (NEGATIVE) mg/dL Urine Glucose (UA) (NEGATIVE) mg/dL Urine Ketones (NEGATIVE) mg/dL Urine Occult Blood (NEGATIVE) Urine Nitrite (NEGAITVE) Urine Bilirubin (NEGATIVE) Urine Urobilinogen (NORMAL) mg/dL Ur Leukocyte Esterase (NEGATIVE) Urine RBC (0-5) Urine WBC (0-5) Ur Epithelial Cells Amorphous Sediment Urine Bacteria Urine Mucus Digoxin (0.90-2.00) ng/mL Salicylates 0.0 L (2.0-20.0) mg/dL Urine Opiates Screen (NEGATIVE) Ur Oxycodone Screen (NEGATIVE) Urine Methadone Screen (NEGATIVE) Ur Propoxyphene Screen (NEGATIVE) Acetaminophen (10.0-30.0) ug/mL Ur Barbiturates Screen (NEGATIVE) Ur Tricyclics Screen (NEGATIVE) Ur Phencyclidine Scrn (NEGATIVE) Ur Amphetamine Screen (NEGATIVE) U Methamphetamines Scrn (NEGATIVE) Urine MDMA Screen (NEGATIVE) U Benzodiazepines Scrn (NEGATIVE) U Cocaine Metab Screen (NEGATIVE) U Marijuana (THC) Screen (NEGATIVE) Ethyl Alcohol mg/dL 04/22/18 04/22/1804/22/18 Range/Units 13:24 14:02 14:23 WBC (4.5-11.0) K/uL RBC (4.30-5.90) M/uL Hgb (12.0-15.0) g/dL Hct (40.0-54.0) % MCV (80-98) fL MCH (27-31) pg MCHC (32-36) % Plt Count (150-400) K/uL Neut % (Auto) (36-66) % Lymph % (Auto) (24-44) % Spink % (Auto) (2-6) % Eos % (Auto) (2-4) % Baso % (Auto) (0-1) % PT (9.5-12.0) sec INR (0.80-1.20) APTT (27.0-36.0) sec Sodium (140-148) mmol/L Potassium (3.6-5.2) mmol/L Chloride (100-108) mmol/L Carbon Dioxide (21-32) mmol/L Anion Gap (5.0-14.0) mmol/L BUN (7-18) mg/dL Creatinine (0.8-1.3) mg/dL Est Cr Clr Drug Dosing mL/min Estimated GFR (MDRD) (>60) Glucose (74-106) mg/dL Lactic Acid (0.4-2.0) mmol/L Calcium (8.5-10.1) mg/dL Total Bilirubin (0.2-1.0) mg/dL AST (15-37) U/L ALT (12-78) U/L Alkaline Phosphatase (46-116) U/L Ammonia (11-32) mmol/L Troponin I (0.000-0.056) ng/mL Total Protein (6.4-8.2) g/dL Albumin (3.4-5.0) g/dL Globulin (2.3-3.5) g/dL Albumin/Globulin Ratio (1.2-2.2) Urine Color Yellow Urine Appearance Clear Urine pH 7.0 (4.5-8.0) Ur Specific Weston 1.010 (1.008-1.030) Urine Protein Negative (NEGATIVE) mg/dL Urine Glucose (UA) Normal (NEGATIVE) mg/dL Urine Ketones Negative (NEGATIVE) mg/dL Urine Occult Blood Large (NEGATIVE) Urine Nitrite Negative (NEGAITVE) Urine Bilirubin Negative (NEGATIVE) Urine Urobilinogen 1 (NORMAL) mg/dL Ur Leukocyte Esterase Negative (NEGATIVE) Urine RBC 5-10 H (0-5) Urine WBC 0-5 (0-5) Ur Epithelial Cells Few Amorphous Sediment Not seen Urine Bacteria Rare Urine Mucus Rare Digoxin (0.90-2.00) ng/mL Salicylates (2.0-20.0) mg/dL Urine Opiates Screen Negative (NEGATIVE) Ur Oxycodone Screen Negative (NEGATIVE) Urine Methadone Screen Negative (NEGATIVE) Ur Propoxyphene Screen Negative (NEGATIVE) Acetaminophen (10.0-30.0) ug/mL Ur Barbiturates Screen Negative (NEGATIVE) Ur Tricyclics Screen Negative (NEGATIVE) Ur Phencyclidine Scrn Negative (NEGATIVE) Ur Amphetamine Screen Negative (NEGATIVE) U Methamphetamines Scrn Negative (NEGATIVE) Urine MDMA Screen Negative (NEGATIVE) U Benzodiazepines Scrn Negative (NEGATIVE) U Cocaine Metab Screen Negative (NEGATIVE) U Marijuana (THC) Screen Negative (NEGATIVE) Ethyl Alcohol < 3 mg/dL 04/22/18 04/23/18 04/23/18 Range/Units 14:57 05:32 05:32 WBC (4.5-11.0) K/uL RBC (4.30-5.90) M/uL Hgb (12.0-15.0) g/dL Hct (40.0-54.0) % MCV (80-98) fL MCH (27-31) pg MCHC (32-36) % Plt Count (150-400) K/uL Neut % (Auto) (36-66) % Lymph % (Auto) (24-44) % Spink % (Auto) (2-6) % Eos % (Auto) (2-4) % Baso % (Auto) (0-1) % PT (9.5-12.0) sec INR (0.80-1.20) APTT (27.0-36.0) sec Sodium 141 (140-148) mmol/L Potassium 3.6 (3.6-5.2) mmol/L Chloride 111 H (100-108) mmol/L Carbon Dioxide 22 (21-32) mmol/L Anion Gap 11.6 (5.0-14.0) mmol/L BUN 13 (7-18) mg/dL Creatinine 0.7 L (0.8-1.3) mg/dL Est Cr Clr Drug Dosing 101.39 mL/min Estimated GFR (MDRD) > 60 (>60) Glucose 111 H (74-106) mg/dL Lactic Acid (0.4-2.0) mmol/L Calcium 7.7 L (8.5-10.1) mg/dL Total Bilirubin 1.9 H (0.2-1.0) mg/dL AST 48 H (15-37) U/L ALT 37 (12-78) U/L Alkaline Phosphatase 160 H (46-116) U/L Ammonia 84 H (11-32) mmol/L Troponin I (0.000-0.056) ng/mL Total Protein 4.8 L (6.4-8.2) g/dL Albumin 2.1 L (3.4-5.0) g/dL Globulin 2.7 (2.3-3.5) g/dL Albumin/Globulin Ratio 0.8 L (1.2-2.2) Urine Color Urine Appearance Urine pH (4.5-8.0) Ur Specific Weston (1.008-1.030) Urine Protein (NEGATIVE) mg/dL Urine Glucose (UA) (NEGATIVE) mg/dL Urine Ketones (NEGATIVE) mg/dL Urine Occult Blood (NEGATIVE) Urine Nitrite (NEGAITVE) Urine Bilirubin (NEGATIVE) Urine Urobilinogen (NORMAL) mg/dL Ur Leukocyte Esterase (NEGATIVE) Urine RBC (0-5) Urine WBC (0-5) Ur Epithelial Cells Amorphous Sediment Urine Bacteria Urine Mucus Digoxin 0.30 L (0.90-2.00) ng/mL Salicylates (2.0-20.0) mg/dL Urine Opiates Screen (NEGATIVE) Ur Oxycodone Screen (NEGATIVE) Urine Methadone Screen (NEGATIVE) Ur Propoxyphene Screen (NEGATIVE) Acetaminophen (10.0-30.0) ug/mL Ur Barbiturates Screen (NEGATIVE) Ur Tricyclics Screen (NEGATIVE) Ur Phencyclidine Scrn (NEGATIVE) Ur Amphetamine Screen (NEGATIVE) U Methamphetamines Scrn (NEGATIVE) Urine MDMA Screen (NEGATIVE) U Benzodiazepines Scrn (NEGATIVE) U Cocaine Metab Screen (NEGATIVE) U Marijuana (THC) Screen (NEGATIVE) Ethyl Alcohol mg/dL Med Orders - Current: Current Medications Acetaminophen (Tylenol) 650 mg PO Q4H PRN PRN Reason: Pain (Mild 1-3)/fever Aspirin (Halfprin) 81 mg PO DAILY [facility] Last Admin: 04/23/18 08:14 Dose: 81 mg Atorvastatin Calcium (Lipitor) 10 mg PO DAILY [facility] Last Admin: 04/23/18 08:10 Dose: 10 mg Digoxin (Lanoxin) 125 mcg PO DAILY@1300 [facility] Furosemide (Lasix) 60 mg PO DAILY [facility] Last Admin: 04/23/18 08:10 Dose: 60 mg Lactulose (Chronulac) 20 gm PO DAILY [facility] Last Admin: 04/23/18 08:09 Dose: 20 gm Nadolol (Naldol) 20 mg PO BID [facility] Last Admin: 04/23/18 08:12 Dose: 20 mg (Amylase/Lipase/Protease [Creon Dr 25,000 Unit] 3 Cap) 3 cap PO TIDMEALS [facility] Last Admin: 04/23/18 08:08 Dose: 3 cap (Rivastigmine Tartrate [ Rivastigmine]4.5mg * Pom* 1 tab PO BIDMEALS [facility] Last Admin: 04/23/18 08:08 Dose: 1 tab (Zinc Sulfate [Zinc (Sulfate] 1 Tab)*Pom*) 1 tab PO BID [facility] Last Admin: 04/23/18 08:11 Dose: Not Given (Escitalopram Oxalate [ Escitalopram Oxalate ] 5 Mg)*Pom* 5 mg PO DAILY [facility] Last Admin: 04/23/18 08:09 Dose: 5 mg Ondansetron HCl (Zofran Odt) 4 mg PO Q6H PRN PRN Reason: Nausea able to take PO Pantoprazole Sodium (Protonix) 40 mg PO DAILY@0730 [facility] Last Admin: 04/23/18 07:29 Dose: 40 mg Potassium Chloride (Klor-Con M20) 20 meq PO TIDMEALS [facility] Last Admin: 04/23/18 08:08 Dose: 20 meq Sodium Chloride (Saline Flush) 10 ml FLUSH ASDIRECTED PRN PRN Reason: Keep Vein Open Last Admin: 04/22/18 16:20 Dose: 10 ml Spironolactone (Aldactone) 25 mg PO QPM [facility] Last Admin: 04/22/18 21:30 Dose: 25 mg Tamsulosin HCl (Flomax) 0.4 mg PO BEDTIME [place] Last Admin: 04/22/18 21:28 Dose: 0.4 mg Discontinued Medications Lactulose 200 gm/ Sodium (Chloride 700 ml) 0 gm RECTAL ONETIME ONE Stop: 04/22/18 15:01 Last Admin: 04/22/18 17:14 Dose: Not Given Lactated Ringer's (Ringers, Lactated) 1,000 mls @ 999 mls/hr IV BOLUS ONE Stop: 04/22/18 15:56 Last Admin: 04/22/18 16:18 Dose: 999 mls/hr Lactulose (Chronulac) 10 gm PO ONETIME ONE Stop: 04/22/18 14:09 Last Admin: 04/22/18 14:25 Dose: 10 gm Sodium Chloride (Saline Flush) 10 ml FLUSH ASDIRECTED PRN PRN Reason: Keep Vein Open - Exam Quality Assessment: Denies: Supplemental Oxygen General: Reports: Alert, Oriented, Cooperative, No Acute Distress Neck: Reports: Supple Lungs: Reports: Normal Respiratory Effort GI/Abdominal Exam: No Distention Extremities: No Pedal Edema Psy/Mental Status: Reports: Alert, Normal Affect
[2018-04-23] MEDS ORDERED: DIGOXIN 125 MCG PO SCH (13:00)
== END 2018-04-23 11:10 | disposition home or self-care (01) ==
LOC: JP.ED 12:34 → JP.MS 15:29
PROVIDERS: ADMIT Internal Medicine; ATTEND Internal Medicine
DX: K72.90 Hepatic failure, unspecified without coma (principal); K74.60 Unspecified cirrhosis of liver; Z91.19 Patient's noncompliance with other medical treatment and regimen; Z79.899 Other long term (current) drug therapy
CPT/HCPCS: 36415; 70450; 80053; 80162; 80305; 81001; 82140; 83605; 84484; 85025; 85610; 85730; 93005; 96360; 99285; A9270; G0480; J7050; J7120; G0378

== ENCOUNTER 2021-05-21 13:54 | Emergency (ER) | payer MEDICARE, BC ==
--- NOTE | 2021-05-21 16:26 | EDM.PDOC ---
ED HPI GENERAL MEDICAL PROBLEM - General Chief Complaint: General Stated Complaint: blood results PATIENT DOCTOR SUGGESTED HE COME TO Time Seen by Provider: 05/21/21 16:00 Source of Information: Reports: Patient, Family History Limitations: Reports: No Limitations - History of Present Illness INITIAL COMMENTS - FREE TEXT/NARRATIVE: 75-year-old male, liver transplant patient is up here on vacation and went into the lab for some routine labs. His creatinine returned 1.7 and potassium was 6.3, so his doctor called him and told him to come to the emergency room. He feels completely fine, has no symptoms. Onset: Unknown/Unsure Associated Symptoms: Reports: No Other Symptoms - Related Data Allergies Allergy/AdvReac Type Severity Reaction Status Date / Time No Known Allergies Allergy Verified 05/21/21 15:31 Home Meds: Home Meds Amylase/Lipase/Protease [Kelsy GARCIA 24,000 Unit] 3 cap PO TID 04/22/18 [History] Escitalopram Oxalate 5 mg PO DAILY 04/22/18 [History] Rivastigmine Tartrate [Rivastigmine] 1 tab PO BID 04/22/18 [History] Bisoprolol/Hydrochlorothiazide [Bisoprolol-Hctz 5-6.25 mg Tab] 1 each PO DAILY 05/21/21 [History] Cholestyramine/Aspartame [Prevalite Packet] 4 gm PO DAILY 05/21/21 [History] Ferrous Sulfate 325 mg PO DAILY 05/21/21 [History] Gabapentin [Neurontin] 200 mg PO TID 05/21/21 [History] L.acidoph,Paracasei, B.lactis [Probiotic] 1 each PO DAILY 05/21/21 [History] Multivitamin [Multi-Vitamin Daily] 1 each PO DAILY 05/21/21 [History] Silodosin 8 mg PO DAILY 05/21/21 [History] Tacrolimus [Envarsus Xr] 12 mg PO DAILY 05/21/21 [History] Thiamine [Vitamin B-1] 100 mg PO DAILY 05/21/21 [History] Vancomycin [Vancocin 125 MG Capsule] 125 mg PO Q6H 05/21/21 [History] Vit C/E/Zn/Coppr/Lutein/Zeaxan [Preservision Areds 2 Softgel] 1 each PO BID 05/21/21 [History] ursodioL [Ursodiol] 500 mg PO BID 05/21/21 [History] Past Medical History HEENT History: Reports: Cataract, Hard of Hearing Cardiovascular History: Reports: Afib Gastrointestinal History: Reports: Cirrhosis, Pancreatitis, Other (See Below) Genitourinary History: Reports: BPH, UTI, Recurrent Neurological History: Reports: Other (See Below) Other Neuro History: neurological disorder Psychiatric History: Reports: Depression - Infectious Disease History Infectious Disease History: Reports: Chicken Pox, Measles, Mumps, Pertussis (Whooping Cough) - Past Surgical History HEENT Surgical History: Reports: Cataract Surgery Cardiovascular Surgical History: Reports: Coronary Artery Stent, Other (See Below) Other Cardiovascular Surgeries/Procedures: stent placed 3 yrs ago GI Surgical History: Reports: Colonoscopy, Other (See Below) Other GI Surgeries/Procedures: Liver transplant Male Surgical History: Reports: None Neurological Surgical History: Reports: None Musculoskeletal Surgical History: Reports: Other (See Below) Other Musculoskeletal Surgeries/Procedures:: lower back surgery 50years ago Social & Family History - Family History Family Medical History: No Pertinent Family History - Tobacco Use Tobacco Use Status *Q: Never Tobacco User - Caffeine Use Caffeine Use: Reports: Coffee Caffeine Use Comment: 2 CUPS/DAY - Recreational Drug Use Recreational Drug Use: No ED ROS GENERAL - Review of Systems Review Of Systems: See Below Constitutional: Denies: Fever, Chills, Malaise, Decreased Appetite HEENT: Reports: No Symptoms Respiratory: Denies: Shortness of Breath Cardiovascular: Denies: Chest Pain GI/Abdominal: Denies: Nausea, Vomiting : Reports: No Symptoms Skin: Reports: No Symptoms Neurological: Denies: Headache Psychiatric: Reports: No Symptoms ED EXAM, GENERAL - Physical Exam Exam: See Below Exam Limited By: No Limitations General Appearance: Alert, No Apparent Distress Eye Exam: Bilateral Eye: Normal Inspection (No jaundice) Head: Atraumatic Respiratory/Chest: Lungs Clear Cardiovascular: Regular Rate, Rhythm, Systolic Murmur. No: Tachycardia GI/Abdominal: Soft, Non-Tender Extremities: Normal Inspection. No: Pedal Edema Neurological: Alert, Oriented Psychiatric: Normal Affect, Normal Mood Skin Exam: Warm, Dry Course - Vital Signs Last Recorded V/S: Last Vital Signs Temp 98.2 F 05/21/21 15:38 Pulse 62 05/21/21 15:38 Resp 18 05/21/21 15:38 BP 158/83 H 05/21/21 15:38 Pulse Ox 100 05/21/21 15:38 - Orders/Labs/Meds Labs: Laboratory Tests 05/21/21 Range/Units 16:20 Sodium 140 (140-148) mmol/L Potassium 6.0 H (3.6-5.2) mmol/L Chloride 108 (100-108) mmol/L Carbon Dioxide 23 (21-32) mmol/L Anion Gap 15.0 H (5.0-14.0) mmol/L BUN 36 H D (7-18) mg/dL Creatinine 1.7 H D (0.8-1.3) mg/dL Est Cr Clr Drug Dosing 39.96 mL/min Estimated GFR (MDRD) 40 L (>60) Glucose 137 H (74-106) mg/dL Calcium 8.5 (8.5-10.1) mg/dL - Re-Assessments/Exams Free Text/Narrative Re-Assessment/Exam: 05/21/21 16:25 BMP was repeated. 05/21/21 16:43 Potassium is now 6.0, creatinine is still 1.7. Patient admits to very little oral intake today. He continues to feel completely fine. I encouraged him to concentrate on hydration the next 48 hours and recheck his labs on Wednesday unless his primary provider is comfortable with the current levels. Departure - Departure Time of Disposition: 16:53 Disposition: Home, Self-Care 01 Clinical Impression: Hyperkalemia, Mild dehydration - Discharge Information Instructions: Hyperkalemia Referrals: PCP,None [Primary Care Provider] - Forms: ED Department Discharge Care Plan Goals: Encourage hydration over the next 24 to 48 hours, increase activity as tolerated and recheck on Wednesday as instructed by your regular transplant physician. Sepsis Event Note (ED) - Evaluation Sepsis Screening Result: No Definite Risk
== END 2021-05-21 16:53 | disposition home or self-care (01) ==
LOC: JP.ED 13:54
DX: E87.5 Hyperkalemia (principal); E86.0 Dehydration; R94.4 Abnormal results of kidney function studies; Z95.5 Presence of coronary angioplasty implant and graft
CPT/HCPCS: 36415; 80048; 99283